=== PATIENT | female | born 1980 | race Caucasian/White ===

== ENCOUNTER → 2021-09-03 12:31 | Outpatient (CLI) | payer OTHER, SELFPAY ==
--- NOTE | ~2021-09-03 | MM_ITS ---
EXAMINATION: MM scrn júnior implant BI w kay HISTORY: Screening mammogram TECHNIQUE: Craniocaudal and mediolateral oblique 3-D tomosynthesis images with implant displacement a nd synthetic 2-D images were generated. Craniocaudal and mediolateral oblique views of the breasts wi thout implant displacement were obtained using full field digital mammography. CAD analysis was submi tted and interpreted. COMPARISON: No prior mammogram is available for comparison at this institution. BREAST PARENCHYMAL COMPOSITION: The breasts are extremely dense, which lowers the sensitivity of mamm ography. FINDINGS: Status post bilateral augmentation mammoplasty. There is a 5 mm mass with subtle microcalcifications in the mid to upper outer right breast. Diagnost ic right mammogram with magnification views and ultrasound are recommended. Otherwise there is no evidence of suspicious mass, calcification, or architectural distortion to sugg est malignancy in either breast.. IMPRESSION: 1. Right mid-upper outer right breast 5 mm mass with microcalcifications 2. Diagnostic right mammogram with magnification views and right breast ultrasound examination are re commended BI-RADS Category 0: Incomplete: Needs additional imaging evaluation. Reviewed, dictated and finalized at location A. RETE POLISHER IMPRESSION: 1. Right mid-upper outer right breast 5 mm mass with microcalcifications 2. Diagnostic right mammogram with magnification views and right breast ultraso und examination are recommended BI-RADS Category 0: Incomplete: Needs additional imaging evaluation.
== END ==
DX: Z12.31 Encounter for screening mammogram for malignant neoplasm of breast (principal); R92.8 Other abnormal and inconclusive findings on diagnostic imaging of breast
CPT/HCPCS: 77063; 77067

== ENCOUNTER → 2021-09-26 10:28 | Outpatient (CLI) | payer OTHER, SELFPAY ==
--- NOTE | ~2021-09-26 | MMUS_ITS ---
EXAMINATION: MM diag júnior implant RT w kay, US breast RT limited HISTORY: Right breast mass on screening mammogram TECHNIQUE: Craniocaudal, mediolateral, and mediolateral oblique 3-D tomosynthesis images with implant displacement of the right breast were performed. Mediolateral view of the right breast without impla nt displacement were obtained using full field digital mammography. CAD analysis was submitted and in terpreted. High resolution limited right breast ultrasound was performed. COMPARISON: 09/03/2021 FINDINGS: MAMMOGRAPHIC FINDINGS: There is a 5 mm oval equal density mass with obscured margins at the 10:00 location 5 cm from the nip ple on the implant displaced views which demonstrates punctate internal calcifications with mild pleo morphism. ULTRASOUND: There is a 6 mm oval, parallel, hypoechoic mass with indistinct margins, no posterior features, and n o internal vascularity at the 10:30 location 6 cm from the nipple. This appears to contain internal c alcification. There is a 5 mm x 3 mm oval, parallel, hypoechoic mass with indistinct margins, no post erior features, and minimal internal vascularity at the 10:00 location 4 cm from the nipple. IMPRESSION: 1. Indeterminate right breast masses. 2. Ultrasound-guided biopsy is recommended. BI-RADS category 4, suspicious findings. Reviewed, dictated and finalized at location A. IMPRESSION: 1. Indeterminate right breast masses. 2. Ultrasound-guided biopsy is recommended. BI-RADS category 4, suspicious findings.
== END ==
DX: R92.8 Other abnormal and inconclusive findings on diagnostic imaging of breast (principal)
CPT/HCPCS: 76642; 77061; 77065; G0279

== ENCOUNTER 2021-11-13 09:09 | Outpatient (CLI) | payer OTHER, SELFPAY ==
--- NOTE | ~2021-11-13 | US_ITS ---
Consultation US DATE: 11/13/2021 10:36 INDICATION: Ultrasound-guided biopsy of 2 right breast lesions was recommended on 09/26/2021 right mike ast ultrasound. TECHNIQUE: Real-time and color flow imaging of the right breast was performed at 10:00 4-6 cm from ni pple COMPARISON: 09/26/2021 diagnostic right mammogram and limited right breast ultrasound 09/03/2021 bilateral implant screening mammogram FINDINGS: A cluster of grouped punctate microcalcifications of relatively uniform shape was noted on recent screening and diagnostic mammogram examinations of September 03 and September 26, 2021. No linear o r branching microcalcifications are evident. Upon review of 09/26/2021 right breast ultrasound examination and current life technologist and radiol ogist right breast ultrasound imaging no suspicious shadowing mass is evident in the upper outer quad rant. A right breast implant is near the areas in question on the prior ultrasound examination. Considering the close proximity of the implant and the absence of definite suspicious mammographic or sonographi c features such as linear or branching microcalcifications or sonographic shadowing, I recommended 6 month follow-up diagnostic right mammogram and right breast ultrasound examination to the patient. IMPRESSION: BI-RADS Category 3: Probably benign findings Recommendation: 6 month diagnostic right mammogram and limited right breast ultrasound follow-up Reviewed, dictated and finalized at Location [facility]. Reviewed, dictated and finalized at location A. IMPRESSION: BI-RADS Category 3: Probably benign findings Recommendation: 6 month diagnostic right mammogram and limited right breast ult rasound follow-up
== END 2021-11-13 09:10 | disposition home or self-care (01) ==
DX: R92.8 Other abnormal and inconclusive findings on diagnostic imaging of breast (principal)
CPT/HCPCS: 99199

== ENCOUNTER → 2022-06-05 08:52 | Outpatient (CLI) | payer OTHER, SELFPAY ==
--- NOTE | ~2022-06-05 | MMUS_ITS ---
EXAMINATION: MM diag júnior implant RT w kay, US breast RT complete HISTORY: Short-term follow-up of indeterminate right breast masses reported on 09/26/2021 TECHNIQUE: Implant and implant displaced full field and spot implant displaced 3-D tomosynthesis imag es of the right breast were performed and synthetic 2-D images were generated. CAD analysis was submi tted and interpreted. High resolution complete right breast ultrasound including all 4 quadrants and subareolar area was performed. COMPARISON: 09/26/2021 diagnostic right mammogram and limited right breast ultrasound 09/03/2021 bilateral implant screening mammogram BREAST PARENCHYMAL COMPOSITION: The breasts are extremely dense, which lowers the sensitivity of mamm ography. FINDINGS: MAMMOGRAPHIC FINDINGS: Status post augmentation mammoplasty. No suspicious mass or architectural distortion, malignant microcalcifications, skin thickening or ret raction of the right breast is detected. ULTRASOUND: 3:00 3 cm from nipple: Parallel circumscribed 1.2 x 4.4 x 3.0 mm hypoechoic lesion without internal v ascularity or posterior shadowing 10:00 6 cm from nipple: Parallel circumscribed 2.3 x 4.4 x 3.4 mm hypoechoic area without internal va scularity or posterior shadowing No suspicious mass or shadowing is detected throughout the right breast. IMPRESSION: 1. No mammographic evidence of malignancy 2. Routine annual mammographic screening is recommended BI-RADS Category 2: Benign finding(s). Reviewed, dictated and finalized at location A. RUMENT AND CONTROL TECHNICIAN IMPRESSION: 1. No mammographic evidence of malignancy 2. Routine annual mammographic screening is recommended BI-RADS Category 2: Benign finding(s).
== END ==
DX: R92.8 Other abnormal and inconclusive findings on diagnostic imaging of breast (principal)
CPT/HCPCS: 76641; 77061; 77065; G0279

== ENCOUNTER 2023-03-25 21:04 | Emergency (ER) | payer OTHER, SELFPAY ==
--- NOTE | ~2023-03-25 | XR_ITS ---
EXAM: XR ankle RT 2V, XR foot RT min 3V DATE: 03/25/2023 21:29 HISTORY: fall, pain and injury WITH BRUISING TO LATERAL RIGHT ANKLE . COMPARISON: None available. FINDINGS: Normal mineralization. Nondisplaced transverse fracture of the proximal aspect of the righ t fifth metatarsal, with extension of the fracture line to the intermetatarsal articulation. No lytic or blastic lesion. Joint spaces are maintained. No erosion or periosteal change. Soft tissues within normal limits. IMPRESSION: Nondisplaced Briceno type fracture of the right fifth proximal metatarsal. Reviewed, dictated and finalized at location K. IMPRESSION: Nondisplaced Briceno type fracture of the right fifth proximal metata rsal.
[2023-03-25 21:14] VITALS: BP 119/76; PULSE 80; RESP 17; TEMP 36.7; O2SAT 98
--- NOTE | 2023-03-26 02:00 | ED.LOWEXIN ---
HPI - Extremity Injury (Lower) General Chief Complaint: Extremity Injury, Lower Stated Complaint: fall foot pain Time Seen by Provider: 03/26/23 00:18 Source: patient Mode of arrival: ambulatory Limitations: no limitations History of Present Illness HPI Narrative: Patient is a 42-year-old female who presents ED with report of right foot pain. Patient reports she was walking down her back porch steps when she tripped and her right foot rolled forward underneath of itself. She complains of pain to mid lateral right foot. She states initially she was able to bear weight, but has since developed more severe pain and is unable to ambulate. Denies any numbness or tingling. Denies any other injuries. Denies head injury or LOC. Related Data Allergies Allergy/AdvReac Type Severity Reaction Status Date / Time No Known Allergies Allergy Verified 03/26/23 01:05 Review of Systems Review of Systems: CONSTITUTIONAL: Denies fever, chills, or sweats. MUSCULOSKELETAL: See HPI. NEUROLOGIC: See HPI. All systems reviewed & are unremarkable except as noted in HPI and below Exam Narrative: GENERAL: Well appearing, obese with BMI of 34.3, non-toxic, in no acute distress. HEAD: Normocephalic, atraumatic. NECK: Supple. No adenopathy, no masses. RESPIRATORY: Airway patent, respirations nonlabored. CARDIOVASCULAR: Regular rate and rhythm without murmurs, rubs, or gallops. Pedal pulses 2+ and equal bilaterally. MUSCULOSKELETAL: Limited range of motion of right ankle due to pain in right mid lateral foot. Tenderness to palpation over area of right proximal fifth metacarpal/mid lateral foot. Swelling and some ecchymosis forming in this area. Sensation intact to toes. No tenderness along medial malleoli. SKIN: Warm, dry, normal color. No rashes. NEURO: A&O X3. Speech clear. Cranial nerves II-XII grossly intact. No ataxic movements. PSYCHIATRIC: Appropriate mood and affect. Normal interaction. Course Vital Signs Vital signs: Vital Signs Temperature 98.0 F 03/25/23 21:14 Pulse Rate 80 03/25/23 21:14 Respiratory Rate 17 03/25/23 21:14 Blood Pressure 119/76 03/25/23 21:14 Pulse Oximetry 98 03/25/23 21:14 Oxygen Delivery Room Air 03/25/23 21:14 Temperature 98.0 F 03/25/23 21:14 Pulse Rate 80 03/25/23 21:14 Respiratory Rate 17 03/25/23 21:14 Blood Pressure 119/76 03/25/23 21:14 Pulse Oximetry 98 03/25/23 21:14 Oxygen Delivery Room Air 03/25/23 21:14 MDM - Extremity Injury (Lower) MDM Narrative Medical decision making narrative: X-ray of right ankle/foot showing Briceno fracture, nondisplaced, proximal fifth metatarsal. Patient updated on imaging results. Consistent with exam. Patient did not want anything for pain in the ED. She will be placed in short leg posterior splint. She has crutches. Advised importance of nonweightbearing given potential for nonunion. She will be referred to orthopedics for further evaluation and management of fracture. Discussed RICE treatment and reasons to return. Pain medication sent to pharmacy. Patient discharged in stable condition. Medical Records Attestation: I reviewed the patient's medical records. Imaging Data Attestation: I personally reviewed and interpreted this imaging study as follows: Radiologist's impression: ITS Impressions Ankle X-Ray 03/25/23 21:39 IMPRESSION: Nondisplaced Briceno type fracture of the right fifth proximal metatarsal. Foot X-Ray 03/25/23 21:39 IMPRESSION: Nondisplaced Briceno type fracture of the right fifth proximal metatarsal. Discharge Plan Discharge Clinical Impression: Fracture of fifth metatarsal bone of right foot Qualifiers: Encounter type: initial encounter Fracture type: closed Fracture alignment: nondisplaced Qualified Code(s): S92.354A - Nondisplaced fracture of fifth metatarsal bone, right foot, initial encounter for closed fracture Patient Disposition: Home, Self-Care Cond
== END 2023-03-26 02:55 | disposition home or self-care (01) ==
PROVIDERS: Emergency Provider Physician Assistant
DX: S92.354A Nondisplaced fracture of fifth metatarsal bone, right foot, initial encounter for closed fracture (principal); W10.9XXA Fall (on) (from) unspecified stairs and steps, initial encounter
CPT/HCPCS: 29515; 73600; 73630; 99284

== ENCOUNTER → 2023-05-12 14:54 | Outpatient (CLI) | payer OTHER, SELFPAY ==
--- NOTE | ~2023-05-12 | MM_ITS ---
EXAMINATION: MM scrn júnior implant BI w kay HISTORY: Screening mammogram TECHNIQUE: Craniocaudal and mediolateral oblique 3-D tomosynthesis images with implant displacement a nd synthetic 2-D images were generated. Craniocaudal and mediolateral oblique views of the breasts wi thout implant displacement were obtained using full field digital mammography. CAD analysis was submi tted and interpreted. COMPARISON: 06/05/2022, 09/26/2021, 09/03/2021 BREAST PARENCHYMAL COMPOSITION: The breasts are heterogeneously dense, which may obscure small masses . FINDINGS: There is no evidence of suspicious mass, calcification, or architectural distortion to sugg est malignancy in either breast. There has been no suspicious interval change. IMPRESSION: 1. No mammographic evidence of malignancy. 2. Recommend routine screening mammography in one year. BI-RADS Category 1: Negative Reviewed, dictated and finalized at location A.
== END ==
DX: Z12.31 Encounter for screening mammogram for malignant neoplasm of breast (principal)
CPT/HCPCS: 77063; 77067

== ENCOUNTER 2023-05-29 16:49 | Emergency (ER) | payer OTHER, SELFPAY ==
--- NOTE | ~2023-05-29 | CT_ITS ---
EXAMINATION: CT brain wo con DATE: 05/29/2023 20:13 INDICATION: New headaches TECHNIQUE: Computed tomography (CT) of the head was performed without intravenous contrast. Sagittal and coronal reconstructions were performed. The mA was adjusted according to patient size. Iterative reconstruction technique was employed. The dose-length product was 605.33 mGy-cm. COMPARISON: None FINDINGS: No acute intracranial hemorrhage, acute infarction or abnormal extra axial fluid collection. Ventricl es are normal and symmetric. No mass/mass effect. There is mucosal thickening the bilateral ethmoid s inuses with opacification of a few of the posterior left ethmoid air cells. There is also some depend ently layering fluid in the left maxillary sinus. There are prominent defects and medial padilla of the bilateral maxillary sinuses consistent with prior bilateral antral window procedures. There is also been a left turbinectomy. The orbits and mastoid air cells are normal. IMPRESSION: 1. Normal brain. No acute intracranial process. 2. Sinus disease. Reviewed, dictated and finalized at location A. MAT WATCHER
[2023-05-29 17:10] VITALS: BP 147/91; PULSE 105; RESP 16; TEMP 36.6; O2SAT 100
[2023-05-29] MEDS: PROCHLORPERAZINE EDISYLATE 10 MG/2 ML VIAL IV PUSH (20:20)
[2023-05-29] MEDS: diphenhydrAMINE HCl INJ 50 MG/ML VIAL 25 MG IV PUSH (20:20)
[2023-05-29] MEDS: KETOROLAC 15 MG/ML VIAL (*BKC) IV PUSH (20:20)
[2023-05-29] MEDS: SODIUM CHLORIDE 0.9% IV 1,000 ML 999 ML IV CONT (20:21)
[2023-05-29 20:27] VITALS: BP 119/82; PULSE 99; RESP 18; O2SAT 98
--- NOTE | 2023-05-29 20:30 | ED.HA ---
HPI - Headache General Chief Complaint: Headache Stated Complaint: Headache Time Seen by Provider: 05/29/23 19:12 History of Present Illness HPI Narrative: This is a 42-year-old female, with history of migraines and hypothyroidism, who presents emergency department complaining of a headache for the past 3 days. The patient states the headache started quickly, is dull and pressure-like, rated 8/10, worsening since onset and is aggravated by change of position. She complains of associated photophobia phonophobia, though denies weakness, numbness, change/loss of vision/hearing. She denies head injury or loss of consciousness. Related Data Home Medications Medication Instructions Recorded Confirmed albuterol sulfate 2 mg tablet 2 mg PO QID PRN 03/27/23 03/27/23 cetirizine 10 mg tablet (Zyrtec) 10 mg PO DAILY PRN 03/27/23 03/27/23 levothyroxine 175 mcg capsule 175 mcg PO DAILY 03/27/23 03/27/23 levothyroxine 200 mcg capsule 200 mcg PO DAILY 03/27/23 03/27/23 Allergies Allergy/AdvReac Type Severity Reaction Status Date / Time No Known Allergies Allergy Verified 05/29/23 16:50 Review of Systems Review of Systems: CONSTITUTIONAL: Denies fever, chills, or sweats. EYES: Photophobia denies visual changes, redness, or discharge. CARDIOVASCULAR: Denies chest pain, palpitations, or edema. RESPIRATORY: Denies cough or dyspnea. GASTROINTESTINAL: Denies abdominal pain, nausea, vomiting, or diarrhea. GENITOURINARY: Denies dysuria or hematuria. SKIN: Denies rash or itching. MUSCULOSKELETAL: Denies back pain, joint pain, or myalgia. NEUROLOGIC: Headache denies numbness, dizziness, or weakness. PSYCHIATRIC: Denies anxiety or depression. FOR[facility]LY [facility] Past Medical History Medical History SVT (supraventricular tachycardia) Surgical History Surgical History History of bilateral salpingectomy History of breast augmentation History of cardiac radiofrequency ablation (~2021) History of surgery of uterus Ablation History of thyroidectomy, total (~2000) Social History Social History Smoking status: Never smoker Alcohol intake: never Lack of Transportation: No Lack of Food: Never True Current Housing: I Have Housing Concerned About Future Housing: No Difficulty Paying Gas/Electric Bills: No Difficulty Paying for Meds: No Currently Unemployed: No Education: Master's Degree or Higher Difficulty w/ Childcare or Family Care: No Exam Narrative: GENERAL: Well-appearing, well-nourished, and in no acute distress. HEAD: Normocephalic, atraumatic. EYES: PERRLA and EOMI. ENT: Nares clear, no rhinorrhea or epistaxis. Mucous membranes moist. Oropharynx without tonsillar hypertrophy exudate or other lesions. CHEST: Clear to auscultation. No respiratory distress. No wheezes rales or rhonchi HEART: Regular rate and rhythm. No murmur heard. Normal peripheral pulses. ABDOMEN: Soft, nontender, nondistended, normal active bowel sounds. EXTREMITIES: Normal range of motion. No edema. SKIN: Warm, dry, no rash. NEURO: Alert and oriented x3. Strength 5/5 in all extremities, sensation intact bilaterally, no noted ataxia, cranial nerves 2-12 intact PSYCH: Normal mood and affect. Course Course Emergency Course: 20:50 - CT head not concerned for acute intracranial process. On re-evaluation, patient states her pain is improved. Will discharge. Discussed return and emergency precautions including signs/symptoms of intracranial hemorrhage and stroke. The patient voiced understanding and is comfortable with the plan. All questions answered to her satisfaction. Vital Signs Vital signs: Vital Signs Temperature 97.9 F 05/29/23 17:10 Pulse Rate 105 H 05/29/23 17:10 Respiratory Rate 16 05/29/23 17:10 Blood Pressure 147/91 H 05/29/23 17:10 Pulse Oximet
== END 2023-05-29 21:32 | disposition home or self-care (01) ==
PROVIDERS: Emergency Provider Preventive Medicine Aerospace Medicine
DX: R51.9 Headache, unspecified (principal); E89.0 Postprocedural hypothyroidism; Z90.79 Acquired absence of other genital organ(s); J32.9 Chronic sinusitis, unspecified
CPT/HCPCS: 70450; 96361; 96374; 96375; 99284; J0780; J1200; J1885; J7030

== ENCOUNTER 2024-05-15 09:01 | Outpatient (CLI) | payer OTHER, SELFPAY ==
--- NOTE | ~2024-05-15 | MM_ITS ---
EXAMINATION: MM scrn júnior implant BI w kay HISTORY: Screening mammogram TECHNIQUE: Craniocaudal and mediolateral oblique 3-D tomosynthesis images with implant displacement a nd synthetic 2-D images were generated. Craniocaudal and mediolateral oblique views of the breasts wi thout implant displacement were obtained using full field digital mammography. CAD analysis was submi tted and interpreted. COMPARISON: Comparison to multiple prior studies sequentially, with oldest reviewed study dated 09/03. BREAST PARENCHYMAL COMPOSITION: Dense: The breasts are extremely dense, which lowers the sensitivity of mammography. FINDINGS: There is developing asymmetry in the outer aspect of the right breast on CC view. The left breast is stable without evidence for malignancy. IMPRESSION: 1. Developing right breast asymmetries. 2. Additional mammographic views and possible breast ultrasound are recommended. BI-RADS Category 0: Incomplete: Needs additional imaging evaluation. Reviewed, dictated and finalized at location B. OW TRIMMER IMPRESSION: 1. Developing right breast asymmetries. 2. Additional mammographic views and possible breast ultrasound are recommended . BI-RADS Category 0: Incomplete: Needs additional imaging evaluation.
== END 2024-05-15 09:02 | disposition home or self-care (01) ==
LOC: MICIMG 09:02
DX: Z12.31 Encounter for screening mammogram for malignant neoplasm of breast (principal); N64.89 Other specified disorders of breast; Z98.82 Breast implant status
CPT/HCPCS: 77063; 77067